=== PATIENT | male | born 1940 | race Caucasian/White ===

== ENCOUNTER → 2017-08-06 18:29 | Outpatient (REF) | payer MEDICARE, OTHER, SELFPAY | LOC: LAB 18:29 | PROVIDERS: Visit Provider Otolaryngology | DX: R09.81 Nasal congestion (principal); J34.89 Other specified disorders of nose and nasal sinuses; J32.4 Chronic pansinusitis | CPT/HCPCS: 87070; 87077; 87186; 87205 ==

== ENCOUNTER → 2018-01-18 13:14 | Outpatient (REF) | payer MEDICARE, OTHER, SELFPAY | LOC: LAB 13:14 | PROVIDERS: Visit Provider Otolaryngology | DX: J34.89 Other specified disorders of nose and nasal sinuses (principal) | CPT/HCPCS: 87070; 87075; 87077; 87205 ==

== ENCOUNTER 2019-05-03 11:47 | Emergency (ER) | payer MEDICARE, OTHER, SELFPAY ==
[2019-05-03 11:50] VITALS: BP 165/77; PULSE 85; RESP 17; TEMP 36.7; O2SAT 99
--- NOTE | 2019-05-03 11:59 | DI.RAD.S_ITS ---
PROCEDURE: XR ACUTE ABDOMEN SERIES INDICATIONS: Abdominal pain, fullness, difficulty with bloating TECHNIQUE: One view chest and two views of the abdomen were acquired. COMPARISON: [facility], CR, XR CHEST 2 VIEWS, 05/26/2017, 16:59. [facility], CR, XR ABDOMEN 1 VIEW, 05/26/2017, 16:59. FINDINGS: Surgical changes and devices: None. Chest: No large area of pulmonary consolidation is evident. There may be mild airspace disease at the left lung base. No effusion or pneumothorax is present. The heart is enlarged. No pleural effusions. No pneumoperitoneum. Abdomen: A single air-fluid level is identified within the midabdomen involving a small bowel loop that is not distended. No distended small bowel loops are identified. Enlargement of stool seen throughout the colon. No suspicious calcifications. Visualized solid organ contours appear normal. Bones: No suspicious bony lesions. IMPRESSION: 1. Possible small bowel ileus within the mid abdomen. No bowel obstruction. 2. Probable constipation. 3. Cardiomegaly without overt heart failure. 4. Probable atelectasis at the left lung base. Please correlate clinically to exclude pneumonia. Dictated by: Saurabh Fernández M.D. on 05/03/2019 at 11:22 Approved by: Saurabh Fernández M.D. on 05/03/2019 at 11:34
--- NOTE | 2019-05-03 12:03 | ED_ITS ---
HPI - Abdominal Pain General Chief Complaint: Abdominal Pain Stated Complaint: hard time catching full breath,upper gastric issue Time Seen by Provider: 05/03/19 11:52 Source: patient Mode of arrival: Ambulatory Limitations: no limitations History of Present Illness HPI narrative: 78-year-old male former smoker presents with a chief complaint of a fullness in his epigastrium for many months if not years. He states he has been told he has hiatal hernias and up until now had been told that he is not a surgical candidate. Patient has no pain, denies vomiting or changed bowel habits. He has no CP or SOB. He merely states he feels full. He denies any dysuria, frequency or urgency. He is otherwise well and free of complaint Related Data Allergies Allergy/AdvReac Type Severity Reaction Status Date / Time shellfish derived Allergy Severe Anaphylaxis Verified 05/03/19 11:59 Review of Systems Constitutional Constitutional: Denies chills, Denies fatigue, Denies fever(s), Denies frequent falls, Denies lethargy and Denies weakness Eyes Eyes: Denies change in vision, Denies eye discharge, Denies irritation and Denies loss of vision ENT Ears, Nose, Mouth, and Throat: Denies change in voice, Denies dizziness, Denies neck pain, Denies sore throat and Denies throat swelling Cardiovascular Cardiovascular: Denies chest pain, Denies irregular heart rhythm, Denies lightheadedness, Denies palpitations, Denies dyspnea, Denies dyspnea on exertion and Denies orthopnea Respiratory Respiratory: Denies cough, Denies dyspnea, Denies dyspnea on exertion and Denies wheezing Gastrointestinal Gastrointestinal: Denies abdominal pain, Denies change in bowel habits, Denies diarrhea, Denies nausea and Denies vomiting Comments: Fullness Genitourinary Genitourinary: Denies hematuria, Denies flank pain, Denies urinary incontinence and Denies urinary urgency Musculoskeletal Musculoskeletal: Denies back pain, Denies muscle weakness, Denies neck pain, Denies numbness and Denies tingling Integumentary/Breasts Skin/Breast: Denies pruritus, Denies erythema, Denies rash and Denies wounds Neurologic Neurologic: Denies behavioral changes, Denies confusion, Denies dizziness, Denies frequent falls, Denies loss of vision, Denies numbness, Denies tingling and Denies weakness Psychiatric Psychiatric: Denies anxiety, Denies behavioral changes, Denies confusion, Denies depression, Denies homicidal ideation and Denies suicidal ideation Endocrine Endocrine: Denies fatigue, Denies flushing and Denies palpitations Hematologic/Lymphatic Hematologic/Lymphatic: Denies easy bruising Allergic/Immunologic Allergic/Immunologic: Denies urticaria, Denies throat swelling and Denies wheezing Patient History Medical History Aortic stenosis (Acute) Hiatal hernia (Acute) Social History Smoking Status: Former smoker Smoking Status: Former smoker alcohol intake frequency: 0-2 drinks per day Substance Use Type: does not use Exam Narrative Exam Narrative: GENERAL: [78] year old patient appears stated age. Well- nourished, well-developed patient, in mild distress. HEAD: Atraumatic. Normocephalic. EYES: Pupils equal round and reactive. Extraocular motions intact. No scleral icterus. No injection or drainage. ENT: Nose without bleeding, purulent drainage. Throat without erythema, tonsillar hypertrophy or exudate. Airway patent. NECK: Trachea midline. Non tender CARDIOVASCULAR: Regular rate and rhythm without murmurs, gallops, or rubs. RESPIRATORY: Clear to auscultation. Breath sounds equal bilaterally. No wheezes, rales, or rhonchi. GASTROINTESTINAL: Abdomen soft, non-tender, nondistended. EXTREMITIES: No edema or joint tenderness. BACK: Nontender without deformity or crepitance. No flank tenderness. NEURO: AOx3. SKIN: No rash or erythema of visible areas Initial Vital Signs Initial Vital Signs: Vital Signs Temperature 98.1 F 05/03/19 11:50 Pulse Rate 85 05/03/19 11:50 Respiratory Rate 17 05/03/19 11:50 Blood Pressure 165/77 H 05/03/19 11:50 Pulse Oximetry 99 05/03/19 11:50 Course Course Course Narrative: Patient's exam, story and x-ray are all very reassuring. For completeness sake I did call our on-call surgeon to discuss any further exams and I may perform the department which may help his office assist this patient to which he responded no. His encouragement was to have me 5 instruct patient to follow-up as an outpatient. Orders Ordered: ED Orders 05/03/19 11:59 XR acute abdomen series Stat Vital Signs Vital signs: Vital Signs - 8 hr 05/03/19 11:50 05/03/19 13:11 Temperature 98.1 F Pulse Rate 61 Pulse Rate [Right] 85 Respiratory Rate 17 18 Blood Pressure 164/76 H Blood Pressure [Right Arm] 165/77 H Pulse Oximetry 99 98 MDM - Abdominal Pain Imaging Data Chest x-ray: Radiologist's Impression: Gera Centeno 78 M 1940 [address] [address] XRay Report Signed Patient: Gera Centeno WMR#: [id number] : 1940cct:[id number] Age/Sex: 78 / MDate of Service: 05/03/19 Loc: ED Accession Number: [id number] Procedure: XR acute abdomen series Ordering Provider: John Dodd D.O. PROCEDURE: XR ACUTE ABDOMEN SERIES INDICATIONS: Abdominal pain, fullness, difficulty with bloating TECHNIQUE: One view chest and two views of the abdomen were acquired. COMPARISON: [facility], CR, XR CHEST 2 VIEWS, 05/26/2017, 16:59. [facility], CR, XR ABDOMEN 1 VIEW, 05/26/2017, 16:59. FINDINGS: Surgical changes and devices: None. Chest: No large area of pulmonary consolidation is evident. There may be mild airspace disease at the left lung base. No effusion or pneumothorax is present. The heart is enlarged. No pleural effusions. No pneumoperitoneum. Abdomen: A single air-fluid level is identified within the midabdomen involving a small bowel loop that is not distended. No distended small bowel loops are identified. Enlargement of stool seen throughout the colon. No suspicious calcifications. Visualized solid organ contours appear normal. Bones: No suspicious bony lesions. IMPRESSION: 1. Possible small bowel ileus within the mid abdomen. No bowel obstruction. 2. Probable constipation. 3. Cardiomegaly without overt heart failure. 4. Probable atelectasis at the left lung base. Please correlate clinically to exclude pneumonia. Dictated by: Saurabh Fernández M.D. on 05/03/2019 at 11:22 Approved by: Saurabh Fernández M.D. on 05/03/2019 at 11:34 Discharge Plan Departure Patient Disposition: Home Clinical Impression: Abdominal fullness, Hernia, hiatal Discharge Date/Time: 05/03/19 13:12 Instructions: DI for Hiatal Hernia Activity Restrictions/Additional Instructions: *You have been diagnosed with [abdominal bloating, improving, likely a consequence of your hiatal hernia] *What to do: *Take medications as directed *Follow up with [facility], call for an appointment. I discussed your case with Dr. Pires today and he recommended I refer you to his office. *Return to ER if you should have any new, worsening or concerning symptoms Referrals: Cali Virgen MD [Primary Care Provider] - Rajesh Pires MD [Physician] -
[2019-05-03 13:11] VITALS: BP 164/76; PULSE 61; RESP 18; O2SAT 98
== END 2019-05-03 13:12 | disposition home or self-care (01) ==
PROVIDERS: Emergency Provider Emergency Medicine; PCP Family Medicine
DX: R19.8 Other specified symptoms and signs involving the digestive system and abdomen (principal); K44.9 Diaphragmatic hernia without obstruction or gangrene
CPT/HCPCS: 74022; 99283

== ENCOUNTER → 2019-05-31 10:58 | Outpatient (CLI) | payer MEDICARE, OTHER, SELFPAY ==
--- NOTE | 2019-05-31 | DI.RAD.S_ITS ---
PROCEDURE: FL BARIUM SWALLOW W AIR COMPARISON: [facility], CT, CT ABDOMEN PELVIS WITHOUT CONTRAST, 11/15/2018, 16:56. INDICATIONS: Diaphragmatic hernia without obstruction or gangre FINDINGS: Esophageal dysmotility is present. No definite stricture is seen. Normal appearance of the esophageal mucosa where there is adequate esophageal gaseous distention. No hiatal hernia identified. No spontaneous gastroesophageal reflux identified. IMPRESSION: Esophageal dysmotility. No hiatal hernia seen. Dictated by: Isaias Vaz M.D. on 05/31/2019 at 12:35 Approved by: Isaias Vaz M.D. on 06/06/2019 at 15:03
== END ==
PROVIDERS: PCP Family Medicine; Referring Provider Surgery; Visit Provider Surgery
DX: K22.4 Dyskinesia of esophagus (principal)
CPT/HCPCS: 74221

== ENCOUNTER 2019-12-12 13:53 | Emergency (ER) | payer MEDICARE, OTHER, SELFPAY ==
[2019-12-12] VITALS (13 sets, daily range): BP systolic 127–154; BP diastolic 62–80; PULSE 61–88; RESP 18–30; TEMP 36.6; O2SAT 95–98
--- NOTE | 2019-12-12 14:07 | DI.RAD.S_ITS ---
PROCEDURE: XR CHEST 2V INDICATIONS: shortness of breath TECHNIQUE: 2 views of the chest were acquired. COMPARISON: [facility], , CHEST 1 VIEW, 01/11/2015, 9:54. FINDINGS: Surgical changes and devices: None. Lungs and pleura: Lungs are clear. No pleural effusions or pneumothorax. Mediastinum: Mediastinal contours are normal. Heart size is normal. Bones and chest wall: No suspicious bony abnormalities. Soft tissues appear unremarkable. IMPRESSION: No acute cardiopulmonary pathology. Dictated by: Bib Tirado M.D. on 12/12/2019 at 13:55 Approved by: Bib Tirado M.D. on 12/12/2019 at 13:56
[2019-12-12 14:17] LABS: Add Manual Diff / Slide Review NO; Basophils Absolute Auto 100 /uL (0-100); Basophils Percent Auto 0.8 % (0-2); Eosinophils Absolute Auto 300 /uL (0-450); Eosinophils Percent Auto 2.9 % (2-4); Hematocrit 42.3 % (41-53); Hemoglobin 14.4 g/dL (13.5-17.5); Lymphocytes Absolute Auto 1600 /uL (1100-4500); Lymphocytes Percent Auto 16.5 % (25-40); Mean Corpuscular HGB Conc 33.9 % (30-36); Mean Corpuscular Volume 88.5 fL (80-100); Monocytes Absolute Auto 1000 /uL (0-900); Neutrophils Absolute Auto 6700 /uL (1500-7000); Neutrophils Percent Auto 69.8 % (50-75); Platelet Count 169 X10^3/uL (150-400); Red Blood Cell Count 4.78 X10^6/uL (4.5-5.9); Red Cell Distribution Width 13.5 % (11.6-14.8); White Blood Cell Count 9.6 X10^3/uL (4.5-11.0)
--- NOTE | 2019-12-12 14:22 | ED.SOB ---
HPI - SOB/Dyspnea General Chief Complaint: Shortness of Breath/Dyspnea Stated Complaint: SOB Time Seen by Provider: 12/12/19 14:04 Source: patient and family Mode of arrival: Ambulatory Limitations: other (Poor historian. Inaccurate with his own medical history.) History of Present Illness HPI Narrative: The patient arrives with complaints of dyspnea that has been lasting for apparently 2-3 years. He denies chronic pulmonary disease. He is on Lamictal, he sees a neurologist for seizures. He has also been seen by PCM. There was a discussion about dosing, and potential interactions with his other medications. He has been going back and forth between his PCM, and his neurologist. He is not taking several medications because of concerns for interaction and dosing. He is on omeprazole, 1 of medications he is worried may be causing interactions with other medications. On his medication list he has marked this medication caution. Eventually he describes pressure in his central chest, radiating to his neck. He has no back pain. He denies abdominal pain, or nausea. He has no cough, dyspnea or fever. He indicated he has undergone a large workup at this facility. And I upper GI reveals esophageal dysmotility. He has been seen by the local multimedia journalist regarding cardiac issues. He is unaware of any cardiac problems. Related Data Home Medications Medication Instructions Recorded Confirmed fluoxetine 20 mg capsule 20 mg PO DAILY 05/18/19 05/18/19 lamotrigine 100 mg tablet 100 mg PO DAILY 05/18/19 05/18/19 losartan 50 mg tablet 50 mg PO DAILY 05/18/19 05/18/19 omeprazole 20 mg capsule,delayed 20 mg PO DAILY 05/18/19 05/18/19 release Allergies Allergy/AdvReac Type Severity Reaction Status Date / Time shellfish derived Allergy Severe Anaphylaxis Verified 05/18/19 09:39 Review of Systems Review of Systems Narrative: ROS is limited. He denies upper respiratory illness. He does not know if he has had a fever. He denies cardiac or respiratory disease. See HPI. He denies GI complaints. He has no pain. No urinary complaints. No leg or ankle pain. Review of systems is otherwise unobtainable. He has a poor historian. Patient History Medical History (Updated 12/12/19 @ 19:17 by Jalil Betancourt MD) Aortic stenosis (Acute) Hiatal hernia (Acute) Seizures (Acute) Surgical History History of ear surgery (Acute) Family History Mother Hypertension Social History Smoking Status: Former smoker Smoking Status: Former smoker alcohol intake frequency: 0-2 drinks per day Substance Use Type: does not use Exam Initial Vital Signs Initial Vital Signs: Vital Signs Temperature 97.9 F 12/12/19 14:04 Pulse Rate 88 12/12/19 14:04 Respiratory Rate 18 12/12/19 14:04 Blood Pressure 141/80 H 12/12/19 14:04 Pulse Oximetry 97 12/12/19 14:04 Const General: cooperative and well developed Nutritional Appearance: well nourished [facility] Mouth: oral mucosae normal Eyes General: appearance normal, both eyes and all related structures Eyelids: eyelids normal Conjunctivae: conjunctivae normal Sclera: sclerae normal Pupils: PERRL EOM: EOM intact bilaterally Neck Neck: No JVD Chest Chest: normal inspection of the chest Resp Effort & Inspection: normal respiratory effort and able to speak in complete sentences Auscultation: clear to auscultation bilaterally, no rales, no rhonchi and no wheezes Cardio Rate: regular rate Rhythm: regular rhythm Heart Sounds: no click, no gallops, no murmurs and no rubs Pulses: normal peripheral pulses GI Palpation: soft and No tender Percussion: normal to percussion Auscultation: normal bowel sounds Back/Spine/Pelvis Back: No back tenderness Skin General: no rashes or lesions noted and No jaundice Neuro General: patient alert, oriented (Person, place), gait normal and no focal motor deficits Speech: speech normal Extrem General: normal to inspection, full ROM and no pedal edema Psych Appearance: grossly normal Affect: anxious affect Attitude: cooperative Other: Poor memory Course Course Course Narrative: The patient was given nitroglycerin, his chest discomfort did resolve. His epigastric discomfort also resolved. Cardiac workup is benign. His EKG is unchanged since 3 years ago. He has a hiatal hernia, I think he is symptomatic of the hiatal hernia. He he is not taking the omeprazole. I am going to encourage him to take Mylanta 2-3 times daily. Orders Ordered: ED Orders 12/12/19 14:05 Complete Blood Count AUTO DIFF Stat Comprehensive Metabolic Panel Stat Lactate (Lactic Acid) Stat 12/12/19 14:07 XR chest 2V Stat EKG-12 Lead Stat Measure peak expiratory flow ONCE RT Consult Eval and Treat Now 12/12/19 14:44 Troponin & CK Cardiac Panel Stat 12/12/19 15:13 D Dimer Stat 12/12/19 18:40 COVID19 -ED/INPAT/OR/L&D Stat Discontinued Medications Aspirin (Aspirin Chew) 324 mg PO NOW ONE Stop: 12/12/19 14:17 Last Admin: 12/12/19 14:48 Dose: 324 mg Documented by: MMINOR Nitroglycerin (Nitro-Bid) 1 inch TOP NOW ONE Stop: 12/12/19 14:17 Last Admin: 12/12/19 14:51 Dose: 1 inch Documented by: MMINOR Vital Signs Vital signs: Vital Signs - 8 hr 12/12/19 14:04 12/12/19 14:51 12/12/19 15:45 Temperature 97.9 F Pulse Rate 88 70 63 Respiratory Rate 18 19 Blood Pressure 141/80 H 127/66 Pulse Oximetry 97 95 12/12/19 15:58 12/12/19 16:00 12/12/19 16:01 Temperature Pulse Rate 69 65 Respiratory Rate 30 H 19 Blood Pressure 132/62 Pulse Oximetry 97 96 95 12/12/19 16:30 12/12/19 17:00 12/12/19 17:30 Temperature Pulse Rate 63 61 67 Respiratory Rate 20 18 26 H Blood Pressure 144/73 H 140/71 145/73 H Pulse Oximetry 98 97 97 12/12/19 18:00 12/12/19 18:30 Temperature Pulse Rate 65 70 Respiratory Rate 21 23 Blood Pressure 154/73 H Pulse Oximetry 96 95 MDM - SOB/Dyspnea Lab Data Result diagrams: 12/12/19 14:05 12/12/19 14:05 Labs: Lab Results 12/12/19 12/12/19 12/12/19 Range/Units 14:05 14:05 14:05 WBC 9.6 (4.5-11.0) X10^3/uL RBC 4.78 (4.5-5.9) X10^6/uL Hgb 14.4 (13.5-17.5) g/dL Hct 42.3 (41-53) % MCV 88.5 (80-100) fL MCH 30.0 (26-34) PG MCHC 33.9 (30-36) % RDW 13.5 (11.6-14.8) % Plt Count 169 (150-400) X10^3/uL Neut % (Auto) 69.8 (50-75) % Lymph % (Auto) 16.5 L (25-40) % [place] % (Auto) 10.0 (3-14) % Eos % (Auto) 2.9 (2-4) % Baso % (Auto) 0.8 (0-2) % Neut # (Auto) 6700 (6827-4346) /uL Lymph # (Auto) 1600 (9378-4277) /uL [place] # (Auto) 1000 H (0-900) /uL Eos # (Auto) 300 (0-450) /uL Baso # (Auto) 100 (0-100) /uL D-Dimer (<230) ng/mL Sodium 138 (137-145) mmol/L Potassium 5.2 H (3.4-5.1) mmol/L Chloride 103 (98-107) mmol/L Carbon Dioxide 26 (22-32) mmol/L BUN 19 (9-20) mg/dL Creatinine 1.13 (0.66-1.25) mg/dL Estimated GFR > 60.0 (>60) mL/min BUN/Creatinine Ratio 16.8 (6-22) Glucose 88 (80-110) mg/dL Lactate 1.7 (0.7-2.1) mmol/L Calcium 9.4 (8.4-10.2) mg/dL Total Bilirubin 1.0 (0.2-1.3) mg/dL AST 46 (17-59) IU/L ALT 34 (<50) IU/L Alkaline Phosphatase 64 (38-126) U/L Total Creatine Kinase (55-170) U/L CK-MB (CK-2) (<2.37) ng/mL CK-MB (CK-2) Rel Index (1.5-5.0) % Troponin I (0.01-0.034) ng/mL Total Protein 7.4 (6.3-8.2) g/dL Albumin 4.2 (3.5-5.0) g/dL Globulin 3.2 (1.7-4.1) g/dL Albumin/Globulin Ratio 1.3 (1.0-2.8) COVID-19 PCR (Negative) 12/12/19 12/12/19 12/12/19 Range/Units 14:44 15:13 18:40 WBC (4.5-11.0) X10^3/uL RBC (4.5-5.9) X10^6/uL Hgb (13.5-17.5) g/dL Hct (41-53) % MCV (80-100) fL MCH (26-34) PG MCHC (30-36) % RDW (11.6-14.8) % Plt Count (150-400) X10^3/uL Neut % (Auto) (50-75) % Lymph % (Auto) (25-40) % [place] % (Auto) (3-14) % Eos % (Auto) (2-4) % Baso % (Auto) (0-2) % Neut # (Auto) (7739-0376) /uL Lymph # (Auto) (9072-2168) /uL [place] # (Auto) (0-900) /uL Eos # (Auto) (0-450) /uL Baso # (Auto) (0-100) /uL D-Dimer 338 H (<230) ng/mL Sodium (137-145) mmol/L Potassium (3.4-5.1) mmol/L Chloride (98-107) mmol/L Carbon Dioxide (22-32) mmol/L BUN (9-20) mg/dL Creatinine (0.66-1.25) mg/dL Estimated GFR (>60) mL/min BUN/Creatinine Ratio (6-22) Glucose (80-110) mg/dL Lactate (0.7-2.1) mmol/L Calcium (8.4-10.2) mg/dL Total Bilirubin (0.2-1.3) mg/dL AST (17-59) IU/L ALT (<50) IU/L Alkaline Phosphatase (38-126) U/L Total Creatine Kinase 113 (55-170) U/L CK-MB (CK-2) 0.70 (<2.37) ng/mL CK-MB (CK-2) Rel Index 0.6 L (1.5-5.0) % Troponin I 0.014 (0.01-0.034) ng/mL Total Protein (6.3-8.2) g/dL Albumin (3.5-5.0) g/dL Globulin (1.7-4.1) g/dL Albumin/Globulin Ratio (1.0-2.8) COVID-19 PCR Negative (Negative) Imaging Data Chest x-ray: Radiologist's Impression: [address] [address] XRay Report Signed Patient: Gera Centeno WMR#: [id number] : 9Acct:[id number] Age/Sex: 79 / MDate of Service: 12/12/19 Loc: ED Accession Number: [id number] Procedure: XR chest 2V Ordering Provider: Jalil Betancourt MD PROCEDURE: XR CHEST 2V INDICATIONS: shortness of breath TECHNIQUE: 2 views of the chest were acquired. COMPARISON: [facility], , CHEST 1 VIEW, 01/11/2015, 9:54. FINDINGS: Surgical changes and devices: None. Lungs and pleura: Lungs are clear. No pleural effusions or pneumothorax. Mediastinum: Mediastinal contours are normal. Heart size is normal. Bones and chest wall: No suspicious bony abnormalities. Soft tissues appear unremarkable. IMPRESSION: No acute cardiopulmonary pathology. Dictated by: Bib Tirado M.D. on 12/12/2019 at 13:55 Approved by: Bib Tirado M.D. on 12/12/2019 at 13:56 ECG Data Attestation: I personally reviewed and interpreted this ECG as follows: (Normal sinus rhythm rate 71 beats per minute. Occasional PVCs. Left axis deviation. RBBB.) Prior ECG tracings: available for review (No change from 2014 EKG.) Discharge Plan Departure Patient Disposition: Home Clinical Impression: Abdominal pain, acute, epigastric, Hiatal hernia Instructions: DI for Abdominal Pain-Adult Activity Restrictions/Additional Instructions: I think your discomfort is from the hiatal hernia. Omeprazole was 1 medications that concerns you. Try [id number] Mylanta 2 tablespoons 3 times daily. Follow-up with your doctor to review all the medications. Return here if symptoms escalate. Prescriptions: No Action lamotrigine [Lamictal] 100 mg tablet 100 mg PO DAILY RF: 0 fluoxetine [Prozac] 20 mg capsule 20 mg PO DAILY RF: 0 omeprazole 20 mg capsule,delayed release(DR/EC) 20 mg PO DAILY RF: 0 losartan 50 mg tablet 50 mg PO DAILY RF: 0 Referrals: Cali Virgen MD [Primary Care Provider] -
--- NOTE | 2019-12-12 14:31 | PC.NURSE ---
pt c/o inability to take a deep breath, feels bloated and pressure pushing against diagram causing this issue for the past 3 years becoming more severe recently. Pt also c/o being lightheaded today
[2019-12-12 14:32] LABS: Lactate (Lactic Acid) 1.7 mmol/L (0.7-2.1)
[2019-12-12 14:39] LABS: Alanine Aminotransferase 34 IU/L (<50); Albumin 4.2 g/dL (3.5-5.0); Albumin Globulin Ratio 1.3 (1.0-2.8); Alkaline Phosphatase 64 U/L (38-126); Aspartate Aminotransferase 46 IU/L (17-59); BUN Creatinine Ratio 16.8 (6-22); Blood Urea Nitrogen 19 mg/dL (9-20); Calcium 9.4 mg/dL (8.4-10.2); Carbon Dioxide 26 mmol/L (22-32); Chloride 103 mmol/L (98-107); Estimated Glomerular Filt Rate > 60.0 mL/min (>60); Globulin 3.2 g/dL (1.7-4.1); Glucose 88 mg/dL (80-110); Sodium 138 mmol/L (137-145); Total Protein 7.4 g/dL (6.3-8.2)
[2019-12-12 14:45] LABS: HEMOLYSIS 178 (0-50)
[2019-12-12 14:46] LABS: Potassium 5.2 mmol/L (3.4-5.1)
[2019-12-12] MEDS: ASPIRIN 81 MG CHEW TAB 324 MG PO (14:48)
[2019-12-12] MEDS: NITROGLYCERIN OINT 1 INCH/GM OINT...G. TOP (14:51)
[2019-12-12 14:57] LABS: Creatine Kinase 113 U/L (55-170)
[2019-12-12 15:10] LABS: Troponin I 0.014 ng/mL (0.01-0.034)
[2019-12-12 15:13] LABS: CKMB % Relative Index 0.6 % (1.5-5.0)
--- NOTE | 2019-12-12 15:15 | PC.NURSE ---
drawn by Mikayla lutz
[2019-12-12 15:32] LABS: D Dimer 338 ng/mL (<230)
[2019-12-12 18:57] LABS: COVID19 -Nasal RAPID Negative (Negative)
== END 2019-12-12 19:24 | disposition home or self-care (01) ==
PROVIDERS: Emergency Provider Emergency Medicine; PCP Family Medicine
DX: K44.9 Diaphragmatic hernia without obstruction or gangrene (principal)
CPT/HCPCS: 36415; 71046; 80053; 82550; 82553; 83605; 84484; 85025; 85379; 87635; 93005; 94150; 99284

== ENCOUNTER → 2020-04-17 09:56 | Outpatient (CLI) | payer MEDICARE, OTHER, SELFPAY ==
[2020-04-17 10:43] LABS: Hemoglobin A1C% w Est Avg Glu 5.9 % (4.0-6.0)
== END ==
PROVIDERS: PCP Student in an Organized Health Care Education/Training Program; Referring Provider Student in an Organized Health Care Education/Training Program; Visit Provider Student in an Organized Health Care Education/Training Program
DX: R73.03 Prediabetes (principal)
CPT/HCPCS: 36415; 83036

== ENCOUNTER 2020-09-23 11:18 | Emergency (ER) | payer MEDICARE, OTHER, SELFPAY ==
[2020-09-23] VITALS (7 sets, daily range): BP systolic 130–142; BP diastolic 65–76; PULSE 42–79; RESP 16–18; TEMP 36.2; O2SAT 95–100
--- NOTE | 2020-09-23 11:41 | DI.RAD.S_ITS ---
PROCEDURE: XR CHEST 2V INDICATIONS: shortness of breath TECHNIQUE: 2 views of the chest were acquired. COMPARISON: [facility], , XR CHEST 2V, 12/12/2019, 13:57. FINDINGS: Surgical changes and devices: None. Lungs and pleura: Lungs are clear. No pleural effusions or pneumothorax. Mediastinum: Mediastinal contours are normal. Heart size is normal. Bones and chest wall: No suspicious bony abnormalities. Soft tissues appear unremarkable. IMPRESSION: No acute pulmonary process. Dictated by: Colleen Bernal M.D. on 09/23/2020 at 12:10 Approved by: Colleen Bernal M.D. on 09/23/2020 at 12:27
[2020-09-23 12:30] LABS: Add Manual Diff / Slide Review NO; Basophils Absolute Auto 100 /uL (0-100); Basophils Percent Auto 0.9 % (0-2); Eosinophils Absolute Auto 300 /uL (0-450); Eosinophils Percent Auto 3.6 % (2-4); Hematocrit 43.4 % (41-53); Hemoglobin 14.6 g/dL (13.5-17.5); Lymphocytes Absolute Auto 1500 /uL (1100-4500); Lymphocytes Percent Auto 20.7 % (25-40); Mean Corpuscular HGB Conc 33.7 % (30-36); Mean Corpuscular Hemoglobin 29.3 PG (26-34); Mean Corpuscular Volume 87.1 fL (80-100); Monocytes Absolute Auto 800 /uL (0-900); Monocytes Percent Auto 10.6 % (3-14); Neutrophils Absolute Auto 4600 /uL (1500-7000); Neutrophils Percent Auto 64.2 % (50-75); Platelet Count 138 X10^3/uL (150-400); Red Blood Cell Count 4.99 X10^6/uL (4.5-5.9); Red Cell Distribution Width 14.7 % (11.6-14.8); White Blood Cell Count 7.1 X10^3/uL (4.5-11.0)
[2020-09-23 12:31] LABS: Alanine Aminotransferase 29 IU/L (<50); Albumin 4.1 g/dL (3.5-5.0); Albumin Globulin Ratio 1.5 (1.0-2.8); Alkaline Phosphatase 72 U/L (38-126); Aspartate Aminotransferase 30 IU/L (17-59); BUN Creatinine Ratio 12.8 (6-22); Bilirubin Total 0.9 mg/dL (0.2-1.3); Blood Urea Nitrogen 15 mg/dL (9-20); Calcium 9.3 mg/dL (8.4-10.2); Carbon Dioxide 27 mmol/L (22-32); Chloride 107 mmol/L (98-107); Creatine Kinase 87 U/L (55-170); Estimated Glomerular Filt Rate 59.7 mL/min (>60); Globulin 2.7 g/dL (1.7-4.1); Glucose 98 mg/dL (80-110); HEMOLYSIS < 15 (0-50); Lipase 33 U/L (23-300); Magnesium 2.3 mg/dL (1.6-2.3); Potassium 4.8 mmol/L (3.4-5.1); Sodium 139 mmol/L (137-145); Total Protein 6.8 g/dL (6.3-8.2)
[2020-09-23 12:42] LABS: NT-proBNP (BNP-Adult 18+) 223 pg/mL (<450); Troponin I < 0.012 ng/mL (0.01-0.034)
--- NOTE | 2020-09-23 15:33 | ED.CHESTPAIN ---
HPI - Chest Pain General Chief Complaint: Shortness of Breath/Dyspnea Stated Complaint: Nausea/Inability to breathe deep/RO Cardiac Time Seen by Provider: 09/23/20 14:53 Source: patient Mode of arrival: Wheelchair Limitations: no limitations History of Present Illness HPI narrative: This is an 80-year-old male comes in with complaint of epigastric discomfort that started yesterday. Patient states it continued throughout the night into this morning. He states it will typically improve with eructation. 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 Patient has seen Neurology, Cardiology multiple times, he has had EGDs x2, EKGs and cardiac workups including EEG, barium swallow in further evaluation multiple times for this issue. He does forget to take his lorazepam frequently and states it is worsened when he does not take his medication. Patient states he has had some medications for decreased by his neurologist and they were not tapered and this may have increased his anxiety recently. He still has his prescription for lorazepam. Patient denies any fevers or chills, he has not had any new changes to his symptoms. He attempted to follow-up with his primary care today for his symptoms but was referred to us by the walk-in clinic as they were unavailable. Related Data Home Medications Medication Instructions Recorded Confirmed aspirin 81 mg tablet,delayed 81 mg PO DAILY 12/29/19 09/12/20 release (Adult Aspirin Regimen) simvastatin 20 mg tablet 20 mg PO DAILY 12/29/19 09/12/20 cholecalciferol (vitamin D3) 25 25 mcg PO DAILY 01/03/20 09/12/20 mcg (1,000 unit) capsule lamotrigine 100 mg tablet 50 mg PO BID tab 02/29/20 09/12/20 latanoprost 0.005 % eye drops 1 drp EYE-BOTH ml 03/13/20 09/12/20 mometasone 0.1 % topical solution TOPICAL 03/13/20 09/12/20 ofloxacin 0.3 % eye drops 1 drp EYE-BOTH ml 03/13/20 09/12/20 olopatadine 0.1 % eye drops 1 drp EYE-BOTH ml 03/13/20 09/12/20 Previous Rx's Medication Instructions Recorded losartan 50 mg tablet 50 mg PO DAILY #90 tab 02/23/20 omeprazole 20 mg capsule,delayed 20 mg PO DAILY #90 cap 03/13/20 release tamsulosin 0.4 mg capsule 0.4 mg PO BID #180 cap 07/17/20 epinephrine 0.3 mg/0.3 mL 0.3 mg IM ONCE #1 ea 09/12/20 injection, auto-injector fluticasone propionate 50 1 spray INTRANASAL DAILY #16 g 09/12/20 mcg/actuation nasal spray,suspension lorazepam 0.5 mg tablet 0.5 mg PO DAILY PRN #10 tab 09/12/20 Allergies Allergy/AdvReac Type Severity Reaction Status Date / Time shellfish derived Allergy Severe Anaphylaxis Verified 09/23/20 11:40 Review of Systems Review of Systems ROS Unobtainable: All systems reviewed & are unremarkable except as noted in HPI and below Patient History Medical History Aortic stenosis BPH (benign prostatic hyperplasia) BPH w urinary obs/LUTS Elevated PSA Elevated PSA GERD (gastroesophageal reflux disease) GERD with esophagitis Hiatal hernia High blood pressure Male erectile disorder Prostate cancer Seizures Urinary retention Surgical History History of ear surgery Family History Mother Hypertension Social History Smoking Status: Former smoker Smoking Status: Former smoker alcohol intake frequency: 0-2 drinks per day Substance Use Type: does not use Exam Narrative Exam Narrative: GENERAL: Alert and oriented x three, male in mild distress. HEENT: Head normocephalic, atraumatic, EOMI, pupils reactive, face symmetric, moist mucous membranes NECK: Supple, full range of motion CARDIOVASCULAR: Regular rate and rhythm without murmurs, rubs or gallops. No JVD. RESPIRATORY: Breath sounds equal bilaterally, no wheezes rales or rhonchi. ABDOMEN: Soft, nontender. Normoactive bowel sounds all 4 quadrants. No guarding or rebound, rigidity, no mass : No CVA tenderness EXTREMITIES: Normal range of motion.. Neurovascularly intact. NEUROLOGICAL: Cranial nerves II through XII grossly intact. Moving all extremities. Normal gait. SKIN: Warm, dry, no petechiae, no rashes or lesions. Initial Vital Signs Initial Vital Signs: Vital Signs Temperature 97.1 F L 09/23/20 11:35 Pulse Rate 59 L 09/23/20 11:35 Respiratory Rate 16 09/23/20 11:35 Blood Pressure 138/66 09/23/20 11:35 Pulse Oximetry 98 09/23/20 11:35 Course Orders Ordered: ED Orders 09/23/20 11:41 XR chest 2V Stat EKG-12 Lead Stat 09/23/20 12:00 BNP [NT-proBNP (BNP-Adult 18+)] Stat Complete Blood Count AUTO DIFF Stat Comprehensive Metabolic Panel Stat Lipase Stat Magnesium Stat Troponin & CK Cardiac Panel Stat Vital Signs Vital signs: Vital Signs - 8 hr 09/23/20 12:11 09/23/20 12:13 09/23/20 12:30 Pulse Rate 42 L 43 L 79 Respiratory Rate 17 Blood Pressure 130/76 Pulse Oximetry 95 99 99 09/23/20 13:00 09/23/20 15:41 09/23/20 15:44 Pulse Rate 69 43 L 47 L Respiratory Rate 18 Blood Pressure 142/65 H Pulse Oximetry 100 98 97 MDM - Chest Pain Lab Data Result diagrams: 09/23/20 12:00 09/23/20 12:00 Labs: Lab Results 09/23/20 09/23/20 Range/Units 12:00 12:00 WBC 7.1 (4.5-11.0) X10^3/uL RBC 4.99 (4.5-5.9) X10^6/uL Hgb 14.6 (13.5-17.5) g/dL Hct 43.4 (41-53) % MCV 87.1 (80-100) fL MCH 29.3 (26-34) PG MCHC 33.7 (30-36) % RDW 14.7 (11.6-14.8) % Plt Count 138 L (150-400) X10^3/uL Neut % (Auto) 64.2 (50-75) % Lymph % (Auto) 20.7 L (25-40) % Cecil % (Auto) 10.6 (3-14) % Eos % (Auto) 3.6 (2-4) % Baso % (Auto) 0.9 (0-2) % Neut # (Auto) 4600 (8172-0365) /uL Lymph # (Auto) 1500 (7267-1968) /uL Cecil # (Auto) 800 (0-900) /uL Eos # (Auto) 300 (0-450) /uL Baso # (Auto) 100 (0-100) /uL Sodium 139 (137-145) mmol/L Potassium 4.8 (3.4-5.1) mmol/L Chloride 107 (98-107) mmol/L Carbon Dioxide 27 (22-32) mmol/L BUN 15 (9-20) mg/dL Creatinine 1.17 (0.66-1.25) mg/dL Estimated GFR 59.7 L (>60) mL/min BUN/Creatinine Ratio 12.8 (6-22) Glucose 98 (80-110) mg/dL Calcium 9.3 (8.4-10.2) mg/dL Magnesium 2.3 (1.6-2.3) mg/dL Total Bilirubin 0.9 (0.2-1.3) mg/dL AST 30 (17-59) IU/L ALT 29 (<50) IU/L Alkaline Phosphatase 72 (38-126) U/L Total Creatine Kinase 87 (55-170) U/L CK-MB (CK-2) TNP CK-MB (CK-2) Rel Index TNP Troponin I < 0.012 (0.01-0.034) ng/mL NT-Pro-B Natriuret Pep 223 (<450) pg/mL Total Protein 6.8 (6.3-8.2) g/dL Albumin 4.1 (3.5-5.0) g/dL Globulin 2.7 (1.7-4.1) g/dL Albumin/Globulin Ratio 1.5 (1.0-2.8) Lipase 33 (23-300) U/L Urine Dip Bedside Urine Glucose Negative Bedside Urine Bilirubin - Negative Bedside Urine Ketone - Negative Urine Specific Sherrill 1.015 Bedside Urine Occult Blood - Negative Bedside Urine pH 7.0 Bedside Urine Protein - Negative Bedside Urine Urobilinogen - Negative Bedside Urine Nitrite - Negative Bedside Urine Leukocytes - Negative Esterase Imaging Data Chest x-ray: Radiologist's Impression: [address] [id number] ReportSigned Patient: Gera Centeno WMR#: [id number]: 9Acct:[id number]/Sex: 80 / MDate of Service: 09/23/20Loc: EDAccession Number: [id number] Procedure: XR chest 2V Ordering Provider: Svetlana Melendez D.O. PROCEDURE: XR CHEST 2V INDICATIONS: shortness of breath TECHNIQUE: 2 views of the chest were acquired. COMPARISON: [facility], , XR CHEST 2V, 12/12/2019, 13:57. FINDINGS: Surgical changes and devices: None. Lungs and pleura: Lungs are clear. No pleural effusions or pneumothorax. Mediastinum: Mediastinal contours are normal. Heart size is normal. Bones and chest wall: No suspicious bony abnormalities. Soft tissues appear unremarkable. IMPRESSION: No acute pulmonary process. Dictated by: Colleen Bernal M.D. on 09/23/2020 at 12:10 Approved by: Colleen Bernal M.D. on 09/23/2020 at 12:27 ECG Data Attestation: I personally reviewed and interpreted this ECG as follows: Prior ECG tracings: available for review Interpretation: Sinus rhythm, sinus arrhythmia with occasional PACs. Rate of 70 1p are 162 QRS of 115 [address]TC 502[address] No acute ST changes noted. Patient had prior EKG from 12/12/2019. MDM Narrative Medical decision making narrative: This is an 80-year-old male comes in with complaint of nausea and epigastric pain with pain with inspiration. Patient was sent from walk-in clinic. Patient states he was trying to see his primary care physician. He has had same symptoms many times in the past and had extensive workups including cardiac, GI and neurologic workup. Patient states he has been told on multiple episodes as his anxiety and he has for gotten to take his lorazepam for the last few days. States he had a wil ayaan here had a eructation and had improvement and resolution of his symptoms. Patient's labs, EKG and chest x-ray are reassuring and he does not wish for further additional workup and would like to return home at this time. Patient is aware if he has new or worsening symptoms he is welcome to return at any time for further evaluation. Discharge Plan Departure Patient Disposition: Home Clinical Impression: Atypical chest pain Activity Restrictions/Additional Instructions: Follow-up with your physician for recheck. As per your description you had quite a workup in the past. They may not need to continue with additional but I would discuss with them. Continue home medications as prescribed. Please return for new or worsening symptoms, lightheadedness or passing out, new or worsening chest pain, shortness of breath, persistent vomiting, black or bloody stools or other new or concerning symptoms. Prescriptions: No Action aspirin [Adult Aspirin Regimen] 81 mg tablet,delayed release (DR/EC) 81 mg PO DAILY RF: 0 simvastatin 20 mg tablet 20 mg PO DAILY RF: 0 losartan 50 mg tablet 50 mg PO DAILY Qty: 90 RF: 3 Hold Instructions: Trial of cessation lamotrigine 100 mg tablet 50 mg PO BID RF: 0 ofloxacin 0.3 % drops 1 drp EYE-BOTH RF: 0 mometasone 0.1 % solution topical RF: 0 olopatadine 0.1 % drops 1 drp EYE-BOTH RF: 0 latanoprost 0.005 % drops 1 drp EYE-BOTH RF: 0 omeprazole 20 mg capsule,delayed release(DR/EC) 20 mg PO DAILY Qty: 90 RF: 1 lorazepam 0.5 mg tablet 0.5 mg PO DAILY PRN (Reason: anxiety) Qty: 10 RF: 2 epinephrine 0.3 mg/0.3 mL auto-injector 0.3 mg IM ONCE Qty: 1 RF: 11 fluticasone propionate 50 mcg/actuation spray,suspension 1 spray intranasal DAILY Qty: 16 RF: 11 cholecalciferol (vitamin D3) 25 mcg (1,000 unit) capsule 25 mcg PO DAILY RF: 0 tamsulosin 0.4 mg capsule 0.4 mg PO BID Qty: 180 RF: 3 Referrals: Mateo Noel MD [Primary Care Provider] -
== END 2020-09-23 15:47 | disposition home or self-care (01) ==
PROVIDERS: Emergency Provider Emergency Medicine; PCP Student in an Organized Health Care Education/Training Program
DX: R07.89 Other chest pain (principal); F41.9 Anxiety disorder, unspecified; R06.02 Shortness of breath
CPT/HCPCS: 71046; 80053; 81003; 82550; 83690; 83735; 83880; 84484; 85025; 93005; 93010; 99282; 99284

== ENCOUNTER → 2020-12-05 15:38 | Outpatient (CLI) | payer MEDICARE, OTHER, SELFPAY ==
--- NOTE | 2020-12-05 | DI.ECHO.S_ITS ---
[facility]---------+ [facility] +---------+ : : [address] [place] : : : : [id number] : : : : Phone: [phone]---------+ Echocardiogram Report + + :Name: ASHANTI BRANCH Study Date: 12/05/2020 Height: 71 in : :[facility] ReadingLocation: Weight: 208 lb : : Gender: Male BSA: 2.1 m2 : :: 1940 Age: 80 yrs BP: 125/63 mmHg: :Reason For Study: NONRHEUMATIC AORTIC VALVE STENOSIS : :Ordering Physician: LUIS, : :LEONORA Performed By: Pauline Cruz : :Referring: LEONORA LAZO : + + Interpretation Summary 1) Upper normal left ventricular size with normal thickness, normal wall motion, and normal systolic function E(F 55-60%). 2) Normal right ventricular size and function. 3) There is severe aortic stenosis (valve area 0.7cm2, mean gradient 41mmHg, severity ratio 0.17). 4) 5) The ascending aorta is mild-moderately enlarged at 4.3cm. 6) Compared to the Echo done 10/30/2019, no significant change. Procedure: A two-dimensional transthoracic echocardiogram with color flow and Doppler was performed. The study quality was technically adequate. Comparison is made with the echocardiogram of 10/30/2019. The patient had frequent PACs during the exam. The patient had occasional PVCs during the exam. The heart rate ranged between 70-90 bpm during the study. Left Ventricle: Left ventricular size is at the upper limits of normal. There is normal left ventricular wall thickness. The ejection fraction is estimated to be 55-60%. Left ventricular systolic function appears normal without focal wall motion abnormalities. Right Ventricle: The right ventricle is normal in size and function. Atria: The left atrium is moderately dilated. Right atrial size is normal. There is no Doppler evidence for an interatrial shunt. Mitral Valve: There is mild mitral annular calcification. The mitral valve leaflets are mildly calcified. There is trace mitral regurgitation. Aortic Valve: The aortic valve is severely calcified. There is severe aortic stenosis. The peak aortic velocity is 4.03 m/sec. The aortic valve mean gradient is 40.7 mmHg. The calculated aortic valve area is 0.72 cm2. There is moderate aortic regurgitation. Tricuspid Valve: The tricuspid valve is normal in structure and function. There is mild tricuspid regurgitation. Pulmonary artery pressures cannot be estimated because of the lack of a measurable TR jet velocity but the IVC suggests a CVP of around 3 mmHg. Pulmonic Valve: The pulmonic valve leaflets are thin and pliable; valve motion is normal. There is no pulmonic valvular regurgitation. Great Vessels: The aortic root is normal size. The ascending aorta is mild- moderately enlarged. The IVC is of normal diameter and collapses greater than 50% with a sniff. This suggests a low right atrial pressure of 3 mm Hg. Pericardium/ Pleura There is no pericardial effusion. There is no pleural effusion. MMode/2D Measurements & Calculations LVIDd: 5.6 cm LVOT diam: 2.0 cm LVIDs: 3.9 cm Ao root diam: 3.3 cm FS: 30.2 % asc Aorta Diam: 4.3 cm IVSd: 0.81 cm Ao Arch Diam (Prox Trans): 2.9 cm LVPWd: 0.96 cm LV andrea. diameter/BSA (cm/m^2): 2.6 LV sys. diameter/BSA (cm/m^2): 1.8 LA A2 area: 26.9 cm2 RA long axis: 6.3 cm LA A4 area: 26.9 cm2 RA area: 22.9 cm2 LA length (vol): 6.8 cm RA vol: 70.7 ml LA vol: 90.4 ml RA : 33.0 ml/m2 LA vol index: 42.2 ml/m2 IVC diam: 1.6 cm RVD1 (basal): 3.9 cm TAPSE: 1.7 cm Doppler Measurements & Calculations Ao V2 max: 403.1 cm/sec LVOT Max Ubaldo: 93.1 cm/sec Ao V2 mean: 305.5 cm/sec LV V1 max P.6 mmHg Ao max P.0 mmHg LV V1 VTI: 16.8 cm Ao mean P.7 mmHg ALBA(I,D): 0.54 cm2 Ao V2 VTI: 95.8 cm ALBA(V,D): 0.72 cm2 sev ratio: 0.17 ALBA indexed to BSA (cm^2/m^2): 0.25 MV E max ubaldo: 90.2 cm/sec PA V2 max: 109.8 cm/sec MV A max ubaldo: 119.3 cm/sec PA V2 mean: 73.4 cm/sec MV E/A: 0.76 PA mean P.4 mmHg Med Peak E' Ubaldo: 5.3 cm/sec PA pr(Accel): 44.7 mmHg E/E' med: 17.1 Lat Peak E' Ubaldo: 5.9 cm/sec E/E' lat: 15.4 E/e' average: 16.3 MV dec time: 0.33 sec SV(LVOT): 52.2 ml Reading Physician:06:19 PM
== END ==
PROVIDERS: PCP Student in an Organized Health Care Education/Training Program; Referring Provider Internal Medicine Cardiovascular Disease; Visit Provider Internal Medicine Cardiovascular Disease
DX: I35.0 Nonrheumatic aortic (valve) stenosis (principal)
CPT/HCPCS: 93306

== ENCOUNTER 2021-05-11 13:49 | Emergency (ER) | payer MEDICARE, OTHER, SELFPAY ==
[2021-05-11] VITALS (20 sets, daily range): BP systolic 110–144; BP diastolic 54–67; PULSE 96–103; RESP 19–31; TEMP 36.7; O2SAT 97–100; BMI 29.0
--- NOTE | 2021-05-11 13:48 | DI.RAD.S_ITS ---
PROCEDURE: XR CHEST 1V INDICATIONS: chest pain TECHNIQUE: One view of the chest was acquired. COMPARISON: [facility], CR, XR CHEST 1 VIEW, 05/08/2021, 12:26. [facility], CR, XR CHEST 2V, 09/23/2020, 11:51. FINDINGS: Surgical changes and devices: None. Lungs and pleura: Lungs are clear. No pleural effusions or pneumothorax. Mediastinum: Mediastinal contours appear normal. Heart size is normal. Bones and chest wall: No suspicious bony lesions. Overlying soft tissues appear unremarkable. IMPRESSION: Stable radiographic evaluation of the chest without acute cardiopulmonary abnormalities or focal airspace disease. Dictated by: Sherman Escudero M.D. on 05/11/2021 at 13:28 Approved by: Sherman Escudero M.D. on 05/11/2021 at 13:29
--- NOTE | 2021-05-11 14:19 | ED_ITS ---
HPI - Weakness General Chief complaint: Weakness Stated complaint: weakness Time Seen by Provider: 05/11/21 14:10 Source: patient and EMS Mode of arrival: EMS Limitations: no limitations History of Present Illness HPI Narrative: This is an 80-year-old male who comes to the emergency department with complaint of weakness. Patient is very hard of hearing and somewhat difficult to obtain history but between EMS and patient today he states he fell in the shower his legs felt weak bilaterally and gave out. He states he did not hit his head he denies neck or back pain. He complains of pain in his upper thigh region and that this causes his discomfort and seems to be what makes him fall. Patient states he takes Tylenol and finds that helpful. He denies any swelling of his lower extremities he denies any numbness or tingling. He denies any shortness of breath, he describes persistent chest pain that has not resolved or worsened. He denies any issues with bowel movements or urination. He has been afebrile and denies cold or cough symptoms. He had a cardiac catheterization attempted on the at [facility] which he states was unsuccessful he is supposed to see Cardiology on the but is unclear if this is an outpatient visit or if he is supposed to see a different pump and blower operator for possible cardiac catheterization. He normally sees Dr. Lazo and states he is supposed to see Dr. Salmeron (Kareem suarez). He also has discharge paperwork from yesterday for the through the which note he has been having weakness and pain in his thighs and believed to be 2nd changing from robust statin to Lipitor and was told to return back to his original statin, that he was recommended to follow-up with urology for elevated white count and soft PT who cleared him for home but was discharged home on oral Augmentin for possible pneumonia as well. Patient lives with his who assist in his care. Related Data Home Medications Medication Instructions Recorded Confirmed aspirin 81 mg tablet,delayed 81 mg PO DAILY 12/29/19 01/21/21 release (Adult Aspirin Regimen) cholecalciferol (vitamin D3) 25 25 mcg PO DAILY 01/03/20 01/21/21 mcg (1,000 unit) capsule latanoprost 0.005 % eye drops 1 drp EYE-BOTH ml 03/13/20 01/21/21 mometasone 0.1 % topical solution TOPICAL 03/13/20 01/21/21 ofloxacin 0.3 % eye drops 1 drp EYE-BOTH ml 03/13/20 01/21/21 olopatadine 0.1 % eye drops 1 drp EYE-BOTH ml 03/13/20 01/21/21 Previous Rx's Medication Instructions Recorded tamsulosin 0.4 mg capsule 0.4 mg PO BID #180 cap 07/17/20 epinephrine 0.3 mg/0.3 mL 0.3 mg (0.3 mL) IM ONCE #1 ea 09/12/20 injection, auto-injector fluticasone propionate 50 1 spray INTRANASAL DAILY #16 g 09/12/20 mcg/actuation nasal spray,suspension finasteride 5 mg tablet 5 mg PO DAILY #90 tab 01/21/21 lamotrigine 100 mg tablet 50 mg PO BID #90 tab 03/11/21 losartan 50 mg tablet 50 mg PO DAILY #90 tab 03/11/21 omeprazole 20 mg capsule,delayed 20 mg PO DAILY #90 cap 03/11/21 release simvastatin 20 mg tablet 20 mg PO DAILY #90 tab 03/11/21 lorazepam 0.5 mg tablet 0.5 mg PO DAILY PRN #10 tab 04/24/21 Allergies Allergy/AdvReac Type Severity Reaction Status Date / Time shellfish derived Allergy Severe Anaphylaxis Verified 05/11/21 13:58 Review of Systems Review of Systems ROS Unobtainable: All systems reviewed & are unremarkable except as noted in HPI and below Patient History Medical History Aortic stenosis BPH (benign prostatic hyperplasia) BPH w urinary obs/LUTS Elevated PSA Elevated PSA GERD (gastroesophageal reflux disease) GERD with esophagitis Hearing loss Hiatal hernia High blood pressure Incomplete bladder emptying Male erectile disorder Prostate cancer Seizures Urinary retention Surgical History History of ear surgery Family History Mother Hypertension Social History Smoking Status: Former smoker Smoking Status: Former smoker alcohol intake frequency: 0-2 drinks per day Alcohol type: hard liquor Substance Use Type: does not use Exam Narrative Exam Narrative: GENERAL: Alert and oriented x three, male in mild distress. Patient is very hard of hearing. HEENT: Head normocephalic, atraumatic, EOMI, pupils reactive, face symmetric, moist mucous membranes NECK: Supple, full range of motion, no cervical tenderness. CARDIOVASCULAR: Regular rate and rhythm without murmurs, rubs or gallops. RESPIRATORY: Breath sounds equal bilaterally, no wheezes rales or rhonchi. No tachypnea or accessory muscle use. ABDOMEN: Soft, nontender. Normoactive bowel sounds all 4 quadrants. No guarding or rebound, rigidity, no mass : No CVA tenderness EXTREMITIES: Patient is able to lift both legs off the bed but appears to require significant effort, has some ecchymosis in the right inguinal area consistent with recent cardiac catheterization, no hematoma, nodules or pulsatile mass appreciated,no clubbing, mild bilateral edema. Neurovascularly intact. NEUROLOGICAL: Cranial nerves II through XII grossly intact. Moving all extremities SKIN: Warm, dry, no petechiae, no rashes or lesions otherwise noted. Initial Vital Signs Initial Vital Signs: Vital Signs Temperature 98.0 F 05/11/21 13:50 Pulse Rate 101 H 05/11/21 13:50 Respiratory Rate 19 05/11/21 13:50 Blood Pressure 121/55 L 05/11/21 13:50 Pulse Oximetry 97 05/11/21 13:50 Course Orders Ordered: ED Orders 05/11/21 13:48 XR chest 1V Stat EKG-12 Lead Stat 05/11/21 14:04 BNP [NT-proBNP (BNP-Adult 18+)] Stat Complete Blood Count AUTO DIFF Stat Comprehensive Metabolic Panel Stat Lactate (Lactic Acid) Stat Lipase Stat Magnesium Stat Troponin & CK Cardiac Panel Stat 05/11/21 14:55 CT abdomen pelvis w con Stat 05/11/21 15:06 Blood Culture Stat 05/11/21 16:00 Urinalysis and Microscopic Stat 05/11/21 16:54 US abdomen limited Stat Discontinued Medications Sodium Chloride (Normal Saline 0.9%) 1,000 mls @ 500 mls/hr IV BOLUS ONE Stop: 05/11/21 16:55 Last Infusion: 05/11/21 17:54 Dose: 0 mls/hr Documented by: Admin: 05/11/21 15:30 Dose: 500 mls/hr Documented by: ELIZABETH Reevaluation(s) Reevaluation #1: Patient has discomfort in bilateral legs but states doing okay. Reevaluation #2: Patient ambulated to outside ED doors and back without issue. He states feeling fine. Consultations Consultation #1: Dr. Hunter, reviewed patient's case his abdominal labs are prompting CT abdomen pelvis but troponin and EKG do not show acute changes today. Patient's cardiac cath site appears with healing ecchymosis. He will touch base with Dr. Johnson patient had attempted angioplasty with balloon which was unsuccessful and plan for rotational angioplasty in the next 2 weeks. They will try to move patient's catheterization to a closer date. Vital Signs Vital signs: Vital Signs - 8 hr 05/11/21 13:50 05/11/21 13:58 05/11/21 14:00 Temperature 98.0 F Pulse Rate 101 H 100 H 101 H Respiratory Rate 19 26 H 29 H Blood Pressure 121/55 L Pulse Oximetry 97 100 98 05/11/21 14:07 05/11/21 14:19 05/11/21 14:30 Temperature Pulse Rate 100 H 101 H 98 H Respiratory Rate 26 H 28 H 29 H Blood Pressure 128/67 144/64 H 137/61 Pulse Oximetry 98 100 100 05/11/21 14:45 05/11/21 15:00 05/11/21 15:15 Temperature Pulse Rate 103 H 100 H 100 H Respiratory Rate 30 H 29 H 31 H Blood Pressure 135/64 128/65 110/54 L Pulse Oximetry 100 100 99 05/11/21 15:30 05/11/21 15:31 05/11/21 15:45 Temperature Pulse Rate 101 H 101 H 98 H Respiratory Rate 26 H 28 H 27 H Blood Pressure 115/57 L 116/55 L Pulse Oximetry 99 98 100 05/11/21 16:00 05/11/21 16:15 05/11/21 16:30 Temperature Pulse Rate 99 H 97 H 100 H Respiratory Rate 22 28 H 28 H Blood Pressure 119/59 L 119/59 L 123/59 L Pulse Oximetry 99 100 100 05/11/21 16:45 05/11/21 17:00 05/11/21 17:15 Temperature Pulse Rate 96 H 99 H 96 H Respiratory Rate 28 H 27 H 27 H Blood Pressure 124/58 L 129/61 112/56 L Pulse Oximetry 99 100 99 05/11/21 17:30 05/11/21 17:44 Temperature Pulse Rate 97 H 103 H Respiratory Rate 26 H 29 H Blood Pressure 128/62 Pulse Oximetry 100 100 MDM - Weakness Lab Data Result diagrams: 05/11/21 14:04 05/11/21 14:04 Labs: Lab Results 05/11/21 05/11/21 05/11/21 Range/Units 14:04 14:04 14:04 WBC 18.5 H (4.5-11.0) X10^3/uL RBC 4.42 L (4.5-5.9) X10^6/uL Hgb 13.0 L (13.5-17.5) g/dL Hct 39.5 L (41-53) % MCV 89.2 (80-100) fL MCH 29.4 (26-34) PG MCHC 33.0 (30-36) % RDW 14.1 (11.6-14.8) % Plt Count 305 (150-400) X10^3/uL Neut % (Auto) 88.3 H (50-75) % Lymph % (Auto) 2.1 L (25-40) % [place] % (Auto) 8.0 (3-14) % Eos % (Auto) 1.5 L (2-4) % Baso % (Auto) 0.1 (0-2) % Neut # (Auto) 10026 H (1931-3680) /uL Lymph # (Auto) 400 L (7405-3113) /uL [place] # (Auto) 1500 H (0-900) /uL Eos # (Auto) 300 (0-450) /uL Baso # (Auto) 0 (0-100) /uL Sodium 137 (137-145) mmol/L Potassium 4.4 (3.4-5.1) mmol/L Chloride 105 (98-107) mmol/L Carbon Dioxide 26 (22-32) mmol/L BUN 25 H (9-20) mg/dL Creatinine 1.26 H (0.66-1.25) mg/dL Estimated GFR 54.8 L (>60) mL/min BUN/Creatinine Ratio 19.8 (6-22) Glucose 156 H (80-110) mg/dL Lactate (0.7-2.1) mmol/L Calcium 8.9 (8.4-10.2) mg/dL Magnesium 2.5 H (1.6-2.3) mg/dL Total Bilirubin 1.4 H (0.2-1.3) mg/dL AST 72 H (17-59) IU/L ALT 67 H (<50) IU/L Alkaline Phosphatase 104 (38-126) U/L Total Creatine Kinase 234 H (55-170) U/L CK-MB (CK-2) 2.82 H (<2.37) ng/mL CK-MB (CK-2) Rel Index 1.2 L (1.5-5.0) % Troponin I 0.031 (0.01-0.034) ng/mL NT-Pro-B Natriuret Pep 944 H (<450) pg/mL Total Protein 6.4 (6.3-8.2) g/dL Albumin 3.2 L (3.5-5.0) g/dL Globulin 3.2 (1.7-4.1) g/dL Albumin/Globulin Ratio 1.0 (1.0-2.8) Lipase 21 L (23-300) U/L Urine Color Urine Appearance Urine pH (4.5-8.0) Ur Specific [place] (1.000-1.035) Urine Protein (Negative) Urine Glucose (UA) (Negative) g/dL Urine Ketones (NEGATIVE) Urine Occult Blood (Negative) Urine Nitrate (Negative) Urine Bilirubin (NEGATIVE) Urine Urobilinogen (0.2) E.U./dL Ur Leukocyte Esterase (NEGATIVE) Urine RBC (0-5/HPF) Urine WBC (0-5/HPF) Amorphous Sediment Urine Bacteria (None) Ur Culture Indicated? 05/11/21 05/11/21 Range/Units 14:04 16:00 WBC (4.5-11.0) X10^3/uL RBC (4.5-5.9) X10^6/uL Hgb (13.5-17.5) g/dL Hct (41-53) % MCV (80-100) fL MCH (26-34) PG MCHC (30-36) % RDW (11.6-14.8) % Plt Count (150-400) X10^3/uL Neut % (Auto) (50-75) % Lymph % (Auto) (25-40) % [place] % (Auto) (3-14) % Eos % (Auto) (2-4) % Baso % (Auto) (0-2) % Neut # (Auto) (2723-6471) /uL Lymph # (Auto) (6473-0369) /uL [place] # (Auto) (0-900) /uL Eos # (Auto) (0-450) /uL Baso # (Auto) (0-100) /uL Sodium (137-145) mmol/L Potassium (3.4-5.1) mmol/L Chloride (98-107) mmol/L Carbon Dioxide (22-32) mmol/L BUN (9-20) mg/dL Creatinine (0.66-1.25) mg/dL Estimated GFR (>60) mL/min BUN/Creatinine Ratio (6-22) Glucose (80-110) mg/dL Lactate 2.0 (0.7-2.1) mmol/L Calcium (8.4-10.2) mg/dL Magnesium (1.6-2.3) mg/dL Total Bilirubin (0.2-1.3) mg/dL AST (17-59) IU/L ALT (<50) IU/L Alkaline Phosphatase (38-126) U/L Total Creatine Kinase (55-170) U/L CK-MB (CK-2) (<2.37) ng/mL CK-MB (CK-2) Rel Index (1.5-5.0) % Troponin I (0.01-0.034) ng/mL NT-Pro-B Natriuret Pep (<450) pg/mL Total Protein (6.3-8.2) g/dL Albumin (3.5-5.0) g/dL Globulin (1.7-4.1) g/dL Albumin/Globulin Ratio (1.0-2.8) Lipase (23-300) U/L Urine Color Yellow Urine Appearance Clear Urine pH 5.0 (4.5-8.0) Ur Specific [place] 1.015 (1.000-1.035) Urine Protein 1+ H (Negative) Urine Glucose (UA) Trace H (Negative) g/dL Urine Ketones Negative (NEGATIVE) Urine Occult Blood Trace-lysed (Negative) Urine Nitrate Negative (Negative) Urine Bilirubin Negative (NEGATIVE) Urine Urobilinogen 1.0 (0.2) E.U./dL Ur Leukocyte Esterase Negative (NEGATIVE) Urine RBC 0-1/hpf (0-5/HPF) Urine WBC 0-1/hpf (0-5/HPF) Amorphous Sediment 1+ Urine Bacteria Occasional (0-1) (None) Ur Culture Indicated? Cult not indicated Imaging Data Chest x-ray: Radiologist Impression: No acute changes. CT scan - abdomen/pelvis: Radiologist Impression: Launch?[address] [address] [address] Scan Report Signed Patient: Gera Centeno MR#: [id number] : 1940 Acct:[id number] Age/Sex: 80 / M Date of Service: 05/11/21 Loc: ED Accession Number: [id number] ?? Procedure: CT abdomen pelvis w con Ordering Provider: Svetlana Melendez D.O. PROCEDURE:? CT ABDOMEN PELVIS W CON ? INDICATIONS:? weakness/leg pain ? TECHNIQUE:? After the administration of intravenous contrast, axial sections acquired from the lung bases to the pubic symphysis.? Coronal and sagittal reformats were performed.? For radiation dose reduction, the following was used:? automated exposure control, adjustment of mA and/or kV according to patient size.? ? COMPARISON:? [facility], CT, CT ANGIO CHEST ABDOMEN PELVIS, 05/08/2021, 14:23. ?[facility], CT, CT ABDOMEN PELVIS WITHOUT CONTRAST, 11/15/2018, 16:56. ? FINDINGS:? Image quality:? Excellent.? ? Lung bases:? Lung bases are clear. Heart:? Heart size is normal.? Extensive atherosclerotic calcifications of the coronary arteries. ? ABDOMEN: Liver:? Unremarkable.? ? Gallbladder:? Unremarkable.? ? Biliary ducts:? Unremarkable.? ? Pancreas:? Homogeneous enhancement without focal lesions or pancreatic ductal dilatation. ?No peripancreatic inflammation or organized fluid collections.? ? Spleen:? Unremarkable.? ? Adrenal Glands:? Unremarkable.? ? Kidneys and Ureters:? Kidneys are symmetric in size and enhancement, and there is no obstructive uropathy.? No perinephric inflammatory changes. Ureters are normal in course and caliber.? ? Stomach and Bowel:? Stomach, small bowel loops, and colon are unremarkable.? Scattered colonic diverticulosis without acute diverticulitis. Peritoneum:? No abnormal intraperitoneal fluid.? No free air.? ? Ventral Wall: ? No hernias.? Abdominal Nodes:? No retroperitoneal or mesenteric adenopathy by size criteria.? Vessels:? Scattered atherosclerotic calcifications of the abdominal aorta and iliac vessels without aneurysmal dilatation.? The inferior vena cava appears patent. ? PELVIS: Pelvic Organs:? Unremarkable.? ? Bladder:? Urinary bladder thickness appears normal for degree of distention. No perivesicular inflammatory stranding. Pelvic Nodes: No enlarged lymph nodes.? Miscellaneous: No hernias are seen. ? Mild soft tissue stranding and prominence adjacent to the proximal right common femoral artery.? This is less pronounced and may represent sequela of recent intravascular interventional procedure.? No organized fluid collection seen.? ? Bones:? No acute vertebral body compression fractures. Multilevel spondylitic changes throughout the imaged spine.? No suspicious osseous lesions. ? ? IMPRESSION:? ? 1. CT abdomen and pelvis without acute abnormalities. ? 2. Persistent but decreased inflammatory stranding and soft tissue fullness adjacent to the right proximal common femoral artery which may represent sequela of recent percutaneous intravascular interventional procedure.? Recommend correlation with clinical history. ? 3. Colonic diverticulosis without acute diverticulitis. ? 4. Atherosclerosis.? ? ? Dictated by: Sherman Escudero M.D. on 05/11/2021 at 15:10 ? ? Approved by: Sherman Escudero M.D. on 05/11/2021 at 15:19? US - abdomen: Radiologist Impression: [place] [address] Ultrasound Report Signed Patient: Gera Centeno MR#: [id number] : 1940 Acct:[id number] Age/Sex: 80 / M Date of Service: 05/11/21 Loc: ED Accession Number: [id number] ?? Procedure: US abdomen limited Ordering Provider: Svetlana Melendez D.O. PROCEDURE:? US ABDOMEN LIMITED ? INDICATIONS:? ELEVATED LFTS; WEAKNESS ? TECHNIQUE:? Real-time scanning was performed of the abdominal and retroperitoneal organs, with image documentation.? ? COMPARISON:? None. ? FINDINGS:? ? Liver:? Liver is normal in size and homogeneous in echotexture.? ? Gallbladder:? Gallbladder is normal in sonographic appearance without gallstones, gallbladder wall thickening, pericholecystic fluid, or abnormal sonographic Azar's. ? Biliary ducts:? Intrahepatic bile ducts are non-dilated.? Extrahepatic bile duct caliber measures 5 mm.? Normal is 6-7 mm or less in diameter, or 10 mm or less post-cholecystectomy.? ? Pancreas:? Pancreas not well imaged secondary to bowel gas. ? IMPRESSION:? Normal sonographic appearance of the liver, gallbladder, and biliary ducts.? Pancreas not well imaged secondary to bowel gas. ? ? ? Dictated by: Sherman Escudero M.D. on 05/11/2021 at 16:57 ? ? Approved by: Sherman Escudero M.D. on 05/11/2021 at 16:58?? 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 Patient has EKG with no acute changes appreciated in comparison to 09/23/2020. EKG 2. Shows sinus rhythm rate 106 with PVC, NH interval 150, QRS of 150 QTC of 507. Right bundle branch, left anterior fascicular with no acute EKG changes comparison to prior from 09/23/20. MDM Narrative Medical decision making narrative: This is an 80-year-old male who comes in with complaint of ground level fall. Patient has been complaining of pain his bilateral upper thighs. And felt like his legs were weak and gave out. He was recent hospitalized had attempted cardiac catheterization which was unsuccessful and has been referred to have cardiac catheterization at an outside facility initially my understanding was 2 weeks from now but his daughter states it is on Wednesday, 2 days from now. Patient denies any active chest pain or shortness of breath. No fevers. No nausea or vomiting. He denies any other GI or urinary symptoms. His right cardiac catheterization site has ecchymosis but appears to be healing appropriate. He does have some slight decrease or difficulty with lifting legs but was able to ambulate appropriately. Labs show leukocytosis which was noted on his recent hospitalization they suspected it may be related to his prostate c ancer, there is no clear source of infection found today on chest x-ray, abdomen, abdominal ultrasound or urine. Patient did have urinary retention and was drained with urinary catheterization and was given referral to Urology as he has not been following with them regularly according to his daughter. He did have elevation of his LFTs which appear fairly close to what he had at the hospital at [facility]. Bilirubin was 1.2 yesterday and is 1.4 today he is nontender on exam with negative abdominal CT and ultrasound. Patient ambulated in the department plan for discharge home with cardiac catheterization to be performed on Wednesday. Return precautions discussed with patient and daughter. Discharge Plan Departure Patient Disposition: Home Clinical Impression: Weakness, Urinary retention, Fall Instructions: DI for Urinary Retention in Men Activity Restrictions/Additional Instructions: Follow-up with your physician for recheck and urology. Please call for an appointment if you do not have one. I did speak with your cardiology team today. They are going to touch base with Dr. Serna to true and faciliate cardiac catherization at a sooner date. Continue your home medications as prescribed. Your labs today do show a slight elevation in your liver enzymes compared to labs from your recent hospitalization. Your renal function also had a slight change this is likely from urinary retention and a Romero catheter was placed today. Please follow-up with urology regarding urinary retention and her history of prostate cancer this needs to be closely followed. Please return for fevers, new chest pain or shortness of breath, persistent vomiting, blockage of her catheter or if no urine for a minimal amount of urine is being made, black or bloody stools or other new or concerning symptoms. Prescriptions: No Action aspirin [Adult Aspirin Regimen] 81 mg tablet,delayed release (DR/EC) 81 mg PO DAILY 0RF lamotrigine 100 mg tablet 50 mg PO BID Qty: 90 1RF losartan 50 mg tablet 50 mg PO DAILY Qty: 90 3RF Hold Instructions: Trial of cessation omeprazole 20 mg capsule,delayed release(DR/EC) 20 mg PO DAILY Qty: 90 3RF simvastatin 20 mg tablet 20 mg PO DAILY Qty: 90 1RF lorazepam 0.5 mg tablet 0.5 mg PO DAILY PRN (Reason: anxiety) Qty: 10 1RF ofloxacin 0.3 % drops 1 drp EYE-BOTH 0RF mometasone 0.1 % solution topical 0RF olopatadine 0.1 % drops 1 drp EYE-BOTH 0RF latanoprost 0.005 % drops 1 drp EYE-BOTH 0RF epinephrine 0.3 mg/0.3 mL auto-injector 0.3 mg IM ONCE Qty: 1 11RF fluticasone propionate 50 mcg/actuation spray,suspension 1 spray intranasal DAILY Qty: 16 11RF cholecalciferol (vitamin D3) 25 mcg (1,000 unit) capsule 25 mcg PO DAILY 0RF tamsulosin 0.4 mg capsule 0.4 mg PO BID Qty: 180 3RF finasteride 5 mg tablet 5 mg PO DAILY Qty: 90 3RF Referrals: Mateo Noel MD [Primary Care Provider] - Mary Allen MD [Physician] - Yo Serna MD [Physician] -
[2021-05-11 14:26] LABS: Add Manual Diff / Slide Review NO; Basophils Absolute Auto 0 /uL (0-100); Basophils Percent Auto 0.1 % (0-2); Eosinophils Absolute Auto 300 /uL (0-450); Eosinophils Percent Auto 1.5 % (2-4); Hematocrit 39.5 % (41-53); Lymphocytes Absolute Auto 400 /uL (1100-4500); Lymphocytes Percent Auto 2.1 % (25-40); Mean Corpuscular Hemoglobin 29.4 PG (26-34); Mean Corpuscular Volume 89.2 fL (80-100); Monocytes Absolute Auto 1500 /uL (0-900); Neutrophils Absolute Auto 16400 /uL (1500-7000); Neutrophils Percent Auto 88.3 % (50-75); Platelet Count 305 X10^3/uL (150-400); Red Blood Cell Count 4.42 X10^6/uL (4.5-5.9); Red Cell Distribution Width 14.1 % (11.6-14.8); White Blood Cell Count 18.5 X10^3/uL (4.5-11.0)
[2021-05-11 14:36] LABS: Alanine Aminotransferase 67 IU/L (<50); Albumin 3.2 g/dL (3.5-5.0); Alkaline Phosphatase 104 U/L (38-126); Aspartate Aminotransferase 72 IU/L (17-59); BUN Creatinine Ratio 19.8 (6-22); Bilirubin Total 1.4 mg/dL (0.2-1.3); Blood Urea Nitrogen 25 mg/dL (9-20); Calcium 8.9 mg/dL (8.4-10.2); Carbon Dioxide 26 mmol/L (22-32); Chloride 105 mmol/L (98-107); Creatine Kinase 234 U/L (55-170); Estimated Glomerular Filt Rate 54.8 mL/min (>60); Globulin 3.2 g/dL (1.7-4.1); Glucose 156 mg/dL (80-110); HEMOLYSIS < 15 (0-50); Lipase 21 U/L (23-300); Magnesium 2.5 mg/dL (1.6-2.3); Potassium 4.4 mmol/L (3.4-5.1); Sodium 137 mmol/L (137-145); Total Protein 6.4 g/dL (6.3-8.2)
[2021-05-11 14:43] LABS: NT-proBNP (BNP-Adult 18+) 944 pg/mL (<450)
[2021-05-11 14:46] LABS: Troponin I 0.031 ng/mL (0.01-0.034)
[2021-05-11 14:51] LABS: CKMB % Relative Index 1.2 % (1.5-5.0); Creatine Kinase MB 2.82 ng/mL (<2.37)
--- NOTE | 2021-05-11 14:55 | DI.CT.S_ITS ---
PROCEDURE: CT ABDOMEN PELVIS W CON INDICATIONS: weakness/leg pain TECHNIQUE: After the administration of intravenous contrast, axial sections acquired from the lung bases to the pubic symphysis. Coronal and sagittal reformats were performed. For radiation dose reduction, the following was used: automated exposure control, adjustment of mA and/or kV according to patient size. COMPARISON: [facility], CT, CT ANGIO CHEST ABDOMEN PELVIS, 05/08/2021, 14:23. [facility], CT, CT ABDOMEN PELVIS WITHOUT CONTRAST, 11/15/2018, 16:56. FINDINGS: Image quality: Excellent. Lung bases: Lung bases are clear. Heart: Heart size is normal. Extensive atherosclerotic calcifications of the coronary arteries. ABDOMEN: Liver: Unremarkable. Gallbladder: Unremarkable. Biliary ducts: Unremarkable. Pancreas: Homogeneous enhancement without focal lesions or pancreatic ductal dilatation. No peripancreatic inflammation or organized fluid collections. Spleen: Unremarkable. Adrenal Glands: Unremarkable. Kidneys and Ureters: Kidneys are symmetric in size and enhancement, and there is no obstructive uropathy. No perinephric inflammatory changes. Ureters are normal in course and caliber. Stomach and Bowel: Stomach, small bowel loops, and colon are unremarkable. Scattered colonic diverticulosis without acute diverticulitis. Peritoneum: No abnormal intraperitoneal fluid. No free air. Ventral Wall: No hernias. Abdominal Nodes: No retroperitoneal or mesenteric adenopathy by size criteria. Vessels: Scattered atherosclerotic calcifications of the abdominal aorta and iliac vessels without aneurysmal dilatation. The inferior vena cava appears patent. PELVIS: Pelvic Organs: Unremarkable. Bladder: Urinary bladder thickness appears normal for degree of distention. No perivesicular inflammatory stranding. Pelvic Nodes: No enlarged lymph nodes. Miscellaneous: No hernias are seen. Mild soft tissue stranding and prominence adjacent to the proximal right common femoral artery. This is less pronounced and may represent sequela of recent intravascular interventional procedure. No organized fluid collection seen. Bones: No acute vertebral body compression fractures. Multilevel spondylitic changes throughout the imaged spine. No suspicious osseous lesions. IMPRESSION: 1. CT abdomen and pelvis without acute abnormalities. 2. Persistent but decreased inflammatory stranding and soft tissue fullness adjacent to the right proximal common femoral artery which may represent sequela of recent percutaneous intravascular interventional procedure. Recommend correlation with clinical history. 3. Colonic diverticulosis without acute diverticulitis. 4. Atherosclerosis. Dictated by: Sherman Escudero M.D. on 05/11/2021 at 15:10 Approved by: Sherman Escudero M.D. on 05/11/2021 at 15:19
[2021-05-11] MEDS: SODIUM CHLORIDE 0.9% 1,000 ML 500 ML IV (15:30)
[2021-05-11 16:33] LABS: Appearance Urine UA CLEAR; Bilirubin Urine UA NEGATIVE (NEGATIVE); Color Urine UA YELLOW; Glucose Urine UA TRACE g/dL (Negative); Ketones Urine UA NEGATIVE (NEGATIVE); Leukocyte Esterase Urine UA NEGATIVE (NEGATIVE); Nitrite Urine UA NEGATIVE (Negative); Occult Blood Urine UA TRACE-LYSED (Negative); Protein Urine UA 1+ (Negative); Specific Gravity Urine UA 1.015 (1.000-1.035)
[2021-05-11 16:44] LABS: Amorphous Sediment Urine 1+; Bacteria Urine Occasional (0-1); Culture Indicated Urine Cult Not Indicated; RBC Urine 0-1/HPF (0-5/HPF); WBC Urine 0-1/HPF (0-5/HPF)
--- NOTE | 2021-05-11 16:54 | DI.US.S_ITS ---
PROCEDURE: US ABDOMEN LIMITED INDICATIONS: ELEVATED LFTS; WEAKNESS TECHNIQUE: Real-time scanning was performed of the abdominal and retroperitoneal organs, with image documentation. COMPARISON: None. FINDINGS: Liver: Liver is normal in size and homogeneous in echotexture. Gallbladder: Gallbladder is normal in sonographic appearance without gallstones, gallbladder wall thickening, pericholecystic fluid, or abnormal sonographic Azar's. Biliary ducts: Intrahepatic bile ducts are non-dilated. Extrahepatic bile duct caliber measures 5 mm. Normal is 6-7 mm or less in diameter, or 10 mm or less post-cholecystectomy. Pancreas: Pancreas not well imaged secondary to bowel gas. IMPRESSION: Normal sonographic appearance of the liver, gallbladder, and biliary ducts. Pancreas not well imaged secondary to bowel gas. Dictated by: Sherman Escudero M.D. on 05/11/2021 at 16:57 Approved by: Sherman Escudero M.D. on 05/11/2021 at 16:58
--- NOTE | 2021-05-11 17:47 | PC.NURSE ---
Patient ambulated with ED provided walker without c/o weakness or difficulty.
== END 2021-05-11 18:15 | disposition home or self-care (01) ==
PROVIDERS: Emergency Provider Emergency Medicine; PCP Student in an Organized Health Care Education/Training Program
DX: R53.1 Weakness (principal); R33.9 Retention of urine, unspecified; W18.2XXA Fall in (into) shower or empty bathtub, initial encounter; Z87.891 Personal history of nicotine dependence
CPT/HCPCS: 36415; 71045; 74177; 76705; 80053; 81001; 82550; 82553; 83605; 83690; 83735; 83880; 84484; 85025; 87040; 93005; 96360; 96361; 99284